=== PATIENT | male | born 1960 | race Caucasian/White ===

== ENCOUNTER 2016-08-05 20:53 | Emergency (ER) | payer OTHER ==
[~2016-08-05] VITALS: Ht 182.9 cm; Wt 119.0 kg
[~2016-08-05 20:53] MED LIST: ALBU8.5H3 INH; ASPI325T4 PO; BENA20TA65 PO; CHLO25CA9 PO; ISOS10TA2 NGT; METO-448 PO; NAPR-260 PO; PRED20TA PO; SITA100T8 PO
[2016-08-05 20:57] VITALS: Ht 182.9 cm; Wt 119.0 kg
[2016-08-05] MEDS ORDERED: LIDOCAINE 1% (MDV) 20 ML INJ SC ONE (23:30)
--- NOTE | 2016-08-06 00:16 | ERD ---
ER Documentation Chief Complaint Date/Time DATE: 08/06/16 TIME: 00:12 Chief Complaint abscess back area HPI Patient is a 55-year-old male here with reported abscess to his lower back. He noticed it began approximately 3 weeks ago as a small pimple, and it has grown larger and larger since. He reports that it is painful. He denies any flulike symptoms, fever, chills, nausea, vomiting, diarrhea, body aches, or any other symptoms. He has not been seen or evaluated for this previously. He is not on antibiotics. ROS All systems reviewed and are negative except as per history of present illness. Medications Home Meds Active Scripts Tramadol HCl (Tramadol HCl) 50 Mg Tablet, 50 MG PO Q6 Y for PAIN, #9 TAB Prov:JAVIER LIZ, SUPERVISOR JOINERS 08/06/16 Cephalexin* (Keflex*) 500 Mg Capsule, 500 MG PO QID for 10 Days, CAP Prov:JAVIER LIZ, SUPERVISOR [employer] 08/06/16 Sulfamethoxazole-Trimethoprim* (Bactrim* DS) 800-160 Mg Tab, 1 TAB PO BID for 10 Days, TAB Prov:JAVIER LIZ, SUPERVISOR [employer]ERS 08/06/16 Chlordiazepoxide* (Chlordiazepoxide*) 25 Mg Capsule, 25 MG PO Q8 Y for CONTROL WITHDRAWAL SYMPTOMS, #6 CAP Prov:ROCHELLE YBARRA DO 12/20/15 Naproxen* (Naprosyn*) 500 Mg Tablet, 500 MG PO BID Y for PAIN AND/OR INFLAMMATION, #30 TAB Prov:VELVET ROACH MD 12/19/15 Prednisone* (Prednisone*) 20 Mg Tab, 40 MG PO DAILY for 5 Days, TAB Prov:VELVET ROACH MD 12/19/15 Albuterol Sulfate* (Proair HFA*) 8.5 Gm Hfa.aer.ad, 2 PUFF INH Q4, #1 INHALER Prov:VELVET ROACH MD 12/19/15 Chlordiazepoxide* (Chlordiazepoxide*) 25 Mg Capsule, 25 MG PO Q8 Y for CONTROL WITHDRAWAL SYMPTOMS, #20 CAP Prov:MARISELA SANTILLAN 09/22/15 Chlordiazepoxide* (Chlordiazepoxide*) 25 Mg Capsule, 25 MG PO Q8 Y for ANXIETY, #10 CAP Prov:ISABEL MARTINEZ MD 09/21/15 Metoprolol Tartrate* (Lopressor*) 25 Mg Tab, 25 MG PO BID for 28 Days, TAB Prov:GARRISON WHITE MD 05/15/15 Aspirin (Aspirin Lite-Coat) 325 Mg Tab, 325 MG PO DAILY for 28 Days, BOT Prov:GARRISON WHITE MD 05/15/15 Isosorbide Dinitrate* (Isordil*) 10 Mg Tab, 10 MG NGT TID for 28 Days, BOTTLE Prov:GARRISON WHITE MD 05/15/15 Benazepril Hcl* (Lotensin*) 20 Mg Tab, 20 MG PO BID for 28 Days, BOT Prov:GARRISON WHITE MD 05/15/15 Reported Medications Sitagliptin* (Januvia*) 100 Mg Tablet, 100 MG PO DAILY, TAB 05/14/15 Allergies Allergies: Coded Allergies: No Known Drug Allergies (Verified Allergy, Mild, 12/20/15) PMhx/Soc Medical and Surgical Hx: pt denies Surgical Hx History of Surgery: No Anesthesia Reaction: No Hx Neurological Disorder: No Hx Respiratory Disorders: Yes (ASTHMA) Hx Cardiac Disorders: Yes (DM, HTN, HIGH CHOLESTEROL) Hx Psychiatric Problems: No Hx Miscellaneous Medical Probl: Yes (dm) Hx Alcohol Use: Yes Hx Substance Use: No Hx Tobacco Use: Yes Smoking Status: Current every day smoker Physical Exam Vitals Vital Signs Date Time Temp Pulse Resp B/P Pulse Ox O2 Delivery O2 Flow Rate FiO2 08/05/16 20:57 97.8 90 20 149/73 98 Physical Exam INITIAL VITAL SIGNS: Reviewed by me GENERAL: Alert. Well developed and well nourished. No respiratory distress HEAD: Head is normocephalic. Atraumatic. EYES: EOMI. PERRL. No scleral icterus. No conjunctival injection. ENT: External ears, nose, and mouth normal. Nasal passages patent. Moist mucous membranes. NECK: Supple. Full range of motion. Trachea midline. RESPIRATORY: No tachypnea. Clear to auscultation bilaterally. No wheezing, rales , or rhonchi. CV: Regular rate and rhythm. No murmurs, rubs, or gallops ABDOMEN: Soft, non-distended, non-tender. No guarding. No rebound. No masses. Bowel sounds normal in all quadrants. BACK: No CVA tenderness. Full ROM. EXTREMITIES: No obvious deformity. No clubbing or cyanosis. No edema. SKIN: + An approximate 3 cm round raised fluctuant abscess, with an approximate 1 cm halo of induration located in the patient's lower back. It is not hot to touch. No evidence of surrounding cellulitis. No diaphoresis. No obvious rashes. NEUROLOGIC: Alert and oriented x 3. Appropriate. Face is symmetric. Speech is normal. Moves all extremities equally. Results 24 hrs Current Medications Medications (Trade) Dose Ordered Sig/Karen Route PRN Reason Start Time Stop Time Status Last Admin Dose Admin Lidocaine (Xylocaine 1% (Mdv) 20 ml) 20 ml ONCE ONCE SC 08/05/16 23:30 08/05/16 23:31 DC Procedures/MDM Nursing Notes Reviewed Previous Medical Records requested via [employer]. EMERGENCY DEPARTMENT COURSE / MEDICAL DECISION MAKING: The patient comes to the ED secondary to and abscess which began as a small pimple approximately 3 weeks ago. The patient was treated with incision and drainage The case was discussed with supervising physician Dr. House. Abscess Incision and Drainage with irrigation by me: Location: Lower back Anesthesia: Local 1% Lidocaine Technique: Irrigated. Disrupted loculations w/ instrumentation Packing: Iodoform Dressing: Gauze and tape Complications: Neurovascularly intact post procedure 48 hour wound check. Scar minimization instructions given. I have low suspicion at this time for any systemic infection as the patient is afebrile, not tachycardic, well-appearing, benign physical exam, and reports feeling well and per his baseline. Given this, he is a good candidate for outpatient management and follow-up at this time. Final impression: Abscess Based on patient's history of present illness and physical examination the decision was made to discharge. The patient was re-evaluated after ED treatment and stabilizing measures, and symptoms have improved. There is no evidence of life threatening injuries or illnesses at this time. On re-examination, patient resting in no distress, stable vital signs, reports feeling better and safe for discharge with outpatient follow up here in 48 hours for a wound check. Patient given return precautions. Patient verbalized understanding and agreed to return precautions. I discussed at length with him signs of local and systemic infection. All the patient's questions and concerns were addressed prior to discharge. He agrees with the plan of care, and will return in 48 hours for a wound check. He will keep the packing in place, replaced the gauze dressing if it becomes soiled, and will keep the area clean and dry. Patient's blood pressure was elevated but appears stable without evidence of hypertensive emergency, end organ damage, chest pain or shortness of breath. The patient was counseled about the risks of untreated hypertension and urged to pursue outpatient monitoring and therapy in 2-3 days with their primary care physician. Patient states that he is diagnosed with hypertension and is supposed to be taking his high blood pressure medication, however he chooses not to do so. I counseled him on the risks of long-term hypertension, and he verbalized understanding of this. Prescription Keflex Bactrim Tramadol Departure Diagnosis: Primary Impression: Abscess Condition: Stable JAVIER LIZ NP Aug 06, 2016 00:16
[2016-08-06] MEDS ORDERED: BACTDS PO (00:18)
[2016-08-06] MEDS ORDERED: CEPH-443 PO (00:18)
[2016-08-06] MEDS ORDERED: ULT50 PO (00:18)
== END 2016-08-06 00:29 | disposition home or self-care (01) ==
LOC: FTE 20:53
DX: L02.212 Cutaneous abscess of back [any part, except buttock and flank] (principal); E11.9 Type 2 diabetes mellitus without complications; J45.909 Unspecified asthma, uncomplicated; I10 Essential (primary) hypertension; F17.210 Nicotine dependence, cigarettes, uncomplicated; Z79.82 Long term (current) use of aspirin; Z79.84 Long term (current) use of oral hypoglycemic drugs
CPT/HCPCS: 10061; Z7502; Z7610

== ENCOUNTER 2017-05-28 16:15 | Emergency (ER) | payer OTHER ==
[~2017-05-28] VITALS: Ht 180.3 cm; Wt 118.0 kg
[~2017-05-28 16:15] MED LIST changes: +BACTDS PO; +CEPH-443 PO; +TRAM50TA2 PO
[2017-05-28 16:24] VITALS: Ht 180.3 cm; Wt 118.0 kg
[2017-05-28 17:58] LABS: ABNORMAL IP MESSAGE 1; BASOPHIL # 0.1 10^3/ul (0.0-0.1); BASOPHILS % 0.5 % (0.0-2.0); EOSINOPHILS # 0.4 10^3/ul (0.0-0.5); EOSINOPHILS % 3.1 % (0.0-7.0); HEMATOCRIT 41.3 % (42.0-52.0); HEMOGLOBIN 13.8 g/dl (14.0-18.0); LYMPHOCYTES # 3.2 10^3/ul (0.8-2.9); MEAN CORPUSCULAR HEMOGLOBIN 26.9 pg (29.0-33.0); MEAN CORPUSCULAR HGB CONC 33.4 g/dl (32.0-37.0); MEAN CORPUSCULAR VOLUME 80.5 fl (82.0-101.0); MONOCYTE # 1.5 10^3/ul (0.3-0.9); MONOCYTES % 11.7 % (0.0-11.0); NEUTROPHIL # 7.6 10^3/ul (1.6-7.5); NEUTROPHILS % 59.3 % (39.0-77.0); PLATELET COUNT 272 10^3/UL (140-415); POSITIVE DIFF @See below; RED BLOOD COUNT 5.13 10^6/ul (4.70-6.10); RED CELL DISTRIBUTION WIDTH 13.6 % (11.5-14.5); WHITE BLOOD COUNT 12.9 10^3/ul (4.8-10.8)
[2017-05-28 18:25] LABS: ANION GAP 16 (8-16); BLOOD UREA NITROGEN 10 mg/dl (7-20); CARBON DIOXIDE 29 mmol/L (21-31); CHLORIDE 99 mmol/L (97-110); CREATININE 0.78 mg/dl (0.61-1.24); GLUCOSE 209 mg/dl (70-220); POTASSIUM 4.4 mmol/L (3.5-5.1); SODIUM 140 mmol/L (135-144)
--- NOTE | 2017-05-28 18:28 | RADRPT ---
PROCEDURE: XR Chest. CLINICAL INDICATION: Chest pain. TECHNIQUE: Single frontal view of the chest. COMPARISON: 12/20/2015. FINDINGS: Mild cardiomegaly. Atherosclerotic calcifications in the thoracic aorta. Hypoinflated lungs with pul monary vascular crowding. Mild atelectasis versus airspace disease at the left mid lung. The lungs a re otherwise clear. No signs of pleural fluid or pneumothorax are seen. The osseous structures and s oft tissues are unremarkable. IMPRESSION: Mild atelectasis versus airspace disease at the left mid lung, and otherwise, no acute process in th e chest. RPTAT: [facility] Physician Adan Date Time Electronically viewed and signed by Physician Adan on 05/28/2017 18:27 RS/
[2017-05-28 18:40] LABS: TROPONIN-I < 0.012 ng/ml (0.00-0.12)
[2017-05-28] MEDS ORDERED: AZIT250T94 PO (19:39)
[2017-05-28 19:46] VITALS: BP 119/76; PULSE 98; RESP 20; TEMP 98.9
--- NOTE | 2017-05-28 19:56 | ERD ---
ER Documentation Chief Complaint Chief Complaint cough congestion & wheezing x1wk, hard to catch my breath HPI 56-year-old male presenting with a chief complaint of congestion, shortness of breath, and exhaustion 3 days. Patient states that he was under stress last week but is no longer. History of smoking 1 pack a day 20-30 years. Patient denies medical conditions. No sick contacts. Patient denies headache, fever, abdominal pain, chest pain. No aggravating or alleviating factors. Patient has no other complaints and describes no other associated manifestations. ROS All systems reviewed and are negative except as per history of present illness. Medications Home Meds Active Scripts Azithromycin* (Zithromax*) 250 Mg Tablet, 250 MG PO .ZPACK DIRECTED, #6 TAB TAKE 500 MG (2 TABS) THE FIRST DAY THEN 250 MG (1 TAB) DAYS 2-5 Prov:RAMONITA ALVARENGA PA-C 05/28/17 Tramadol HCl (Tramadol HCl) 50 Mg Tablet, 50 MG PO Q6 Y for PAIN, #9 TAB Prov:JAVIER LIZ, POST ACUTE CARE NURSE PRACTITIONER 08/06/16 Cephalexin* (Keflex*) 500 Mg Capsule, 500 MG PO QID for 10 Days, CAP Prov:JAVIER LIZ, POST ACUTE CARE NURSE PRACTITIONER 08/06/16 Sulfamethoxazole-Trimethoprim* (Bactrim* DS) 800-160 Mg Tab, 1 TAB PO BID for 10 Days, TAB Prov:JAVIER LIZ, POST ACUTE CARE NURSE PRACTITIONER 08/06/16 Chlordiazepoxide* (Chlordiazepoxide*) 25 Mg Capsule, 25 MG PO Q8 Y for CONTROL WITHDRAWAL SYMPTOMS, #6 CAP Prov:ROCHELLE YBARRA DO 12/20/15 Naproxen* (Naprosyn*) 500 Mg Tablet, 500 MG PO BID Y for PAIN AND/OR INFLAMMATION, #30 TAB Prov:VELVET ROACH MD 12/19/15 Prednisone* (Prednisone*) 20 Mg Tab, 40 MG PO DAILY for 5 Days, TAB Prov:VELVET ROACH MD 12/19/15 Albuterol Sulfate* (Proair HFA*) 8.5 Gm Hfa.aer.ad, 2 PUFF INH Q4, #1 INHALER Prov:VELVET ROACH MD 12/19/15 Chlordiazepoxide* (Chlordiazepoxide*) 25 Mg Capsule, 25 MG PO Q8 Y for CONTROL WITHDRAWAL SYMPTOMS, #20 CAP Prov:BENNIEKARENMARISELA Reji 09/22/15 Chlordiazepoxide* (Chlordiazepoxide*) 25 Mg Capsule, 25 MG PO Q8 Y for ANXIETY, #10 CAP Prov:ISABEL MARTINEZ MD 09/21/15 Metoprolol Tartrate* (Lopressor*) 25 Mg Tab, 25 MG PO BID for 28 Days, TAB Prov:GARRISON WHITE MD 05/15/15 Aspirin (Aspirin Lite-Coat) 325 Mg Tab, 325 MG PO DAILY for 28 Days, BOT Prov:GARRISON WHITE MD 05/15/15 Isosorbide Dinitrate* (Isordil*) 10 Mg Tab, 10 MG NGT TID for 28 Days, BOTTLE Prov:GARRISON WHITE MD 05/15/15 Benazepril Hcl* (Lotensin*) 20 Mg Tab, 20 MG PO BID for 28 Days, BOT Prov:GARRISON WHITE MD 05/15/15 Reported Medications Sitagliptin* (Januvia*) 100 Mg Tablet, 100 MG PO DAILY, TAB 05/14/15 Allergies Allergies: Coded Allergies: No Known Drug Allergies (Verified Allergy, Mild, 12/20/15) PMhx/Soc History of Surgery: No Anesthesia Reaction: No Hx Neurological Disorder: No Hx Respiratory Disorders: Yes (ASTHMA) Hx Cardiac Disorders: Yes (DM, HTN, HIGH CHOLESTEROL) Hx Psychiatric Problems: No Hx Miscellaneous Medical Probl: Yes (dm) Hx Alcohol Use: Yes Hx Substance Use: No Hx Tobacco Use: Yes Smoking Status: Current every day smoker Physical Exam Vitals Vital Signs Date Time Temp Pulse Resp B/P Pulse Ox O2 Delivery O2 Flow Rate FiO2 05/28/17 19:46 98.9 98 20 119/76 99 Nasal Cannula 2.0 05/28/17 17:44 Nasal Cannula 2 05/28/17 16:24 99.9 116 20 171/89 98 Physical Exam Const: Obese 56-year-old male in no acute distress. Head: Atraumatic Eyes: Normal Conjunctiva ENT: Normal External Ears, Nose and Mouth. Neck: Full range of motion..~ No meningismus. Resp: Clear to auscultation bilaterally Cardio: Regular rate and rhythm, no murmurs Abd: Soft, non tender, non distended. Normal bowel sounds Skin: No petechiae or rashes Back: No midline or flank tenderness Ext: No cyanosis, or edema Neur: Awake and alert Psych: Normal Mood and Affect Result Diagram: 05/28/175 05/28/175 Results 24 hrs Laboratory Tests Test 05/28/17 17:45 White Blood Count 12.910^3/ul Red Blood Count 5.1310^6/ul Hemoglobin 13.8g/dl Hematocrit 41.3% Mean Corpuscular Volume 80.5fl Mean Corpuscular Hemoglobin 26.9pg Mean Corpuscular Hemoglobin Concent 33.4g/dl Red Cell Distribution Width 13.6% Platelet Count 78475^3/UL Mean Platelet Volume 9.0fl Neutrophils % 59.3% Lymphocytes % 25.0% Monocytes % 11.7% Eosinophils % 3.1% Basophils % 0.5% Nucleated Red Blood Cells % 0.0/100WBC Neutrophils # 7.610^3/ul Lymphocytes # 3.210^3/ul Monocytes # 1.510^3/ul Eosinophils # 0.410^3/ul Basophils # 0.110^3/ul Nucleated Red Blood Cells # 0.010^3/ul Sodium Level 140mmol/L Potassium Level 4.4mmol/L Chloride Level 99mmol/L Carbon Dioxide Level 29mmol/L Anion Gap 16 Blood Urea Nitrogen 10mg/dl Creatinine 0.78mg/dl Glucose Level 209mg/dl Calcium Level 9.0mg/dl Troponin I < 0.012ng/ml Procedures/MDM Obese 56-year-old male with no past medical history presents with a chief complaint of shortness of breath. CBC: White blood cell 4.9. Hemoglobin 13.8. Neutrophils 7.6. Lymphocytes 3.2. Monocytes 1.5. CMP: Unremarkable Troponin: WNL Chest x-ray: Mild atelectasis versus airspace disease at the left mid lung, and otherwise, no acute process in the chest. Review the case with my attending who suggested Z-Gabe and outpatient follow-up. Most likely diagnosis is pneumonia versus cough of unknown etiology. I have little suspicion for ACS, pulmonary embolism, pneumothorax, hemothorax, meningitis, or obstructive airway pathologies. I have spoke with the patient regarding their condition and future management. They have verbally responded that they understand their status and treatment plan. The patients vitals are stable, and their current condition is appropriate for discharge. The patient will be given discharge instructions with return precautions. Departure Diagnosis: Primary Impression: Cough Additional Impression: Fatigue Fatigue type: unspecified Qualified Code: R53.83 - Fatigue, unspecified type Condition: Stable Patient Instructions: Cough, Chronic, Uncertain Cause, (Adult) Additional Instructions: Follow up with your PCP within the next 1-3 days for a more thorough evaluation and a possible referral to a specialist. Return the the emergency department immediately if symptoms worsen or change. If you have any questions regarding medications, ask your pharmacist or us before you leave. If any adverse reactions occur while taking your medications, discontinue the treatment and return to the emergency department immediately. Take your medications as directed, and complete the entire course of treatment. RAMONITA ALVARENGA PA-C May 28, 2017 19:56
== END 2017-05-28 19:46 | disposition home or self-care (01) ==
LOC: FTE 16:15
DX: R05 Cough (principal); R53.83 Other fatigue; I10 Essential (primary) hypertension; E11.9 Type 2 diabetes mellitus without complications; J45.909 Unspecified asthma, uncomplicated; F17.210 Nicotine dependence, cigarettes, uncomplicated; Z79.82 Long term (current) use of aspirin; Z79.84 Long term (current) use of oral hypoglycemic drugs
CPT/HCPCS: 36415; 71010; 80048; 84484; 85025; 93005; Z7502